=== PATIENT | male | born 1965 | race Caucasian/White ===

== ENCOUNTER 2019-12-25 12:30 | Outpatient (CLI) | payer BC, SELFPAY ==
[2019-12-28 07:35] LABS: Patient Race White; SARS-CoV-2 Specimen Source Nasal
[2019-12-28 10:14] LABS: SARS-CoV-2 RNA Detected (Undetected)
== END 2019-12-25 12:50 ==
PROVIDERS: PCP Family Medicine; Visit Provider Family Medicine
DX: Z20.828 Contact with and (suspected) exposure to other viral communicable diseases (principal)
CPT/HCPCS: U0003

== ENCOUNTER → 2023-05-25 02:17 | Outpatient (CLI) | payer BC, SELFPAY ==
--- NOTE | 2023-05-25 | DI.MRI_ITS ---
Exam(s) MR UPPER EXTREMITY RT WO EXAM: MR UPPER EXTREMITY RT WO CLINICAL HISTORY: INJURY RT BRACHIAL PLEXUS S14.3XXXA S/P FALL OUT OF TREESTAND. TECHNIQUE: Multiplanar multisequence MRI was performed. CONTRAST MATERIAL: Noncontrast COMPARISON: MRI of the shoulder from [facility] April 03 FINDINGS: Exam is significantly limited by motion. There is significant pulsation artifact from vessels. Bones: There is no fracture or contusion. Cervical Spine: Mild degenerative disc changes at C5-6 and C6-7. The cord signal is normal. No cent ral canal stenosis. No gross neural foraminal narrowing. Brachial plexus: No evidence of mass or fluid collection. Evaluation of this area significantly limi nicolasa due to motion artifact. IMPRESSION: Limited exam due to motion artifact. No gross abnormality is identified in the brachial plexus. DATA REPOSITORY:
== END ==
PROVIDERS: PCP Family Medicine; Visit Provider Physician Assistant Surgical
DX: S14.3XXA Injury of brachial plexus, initial encounter (principal); W14.XXXA Fall from tree, initial encounter; M50.822 Other cervical disc disorders at C5-C6 level; M50.823 Other cervical disc disorders at C6-C7 level
CPT/HCPCS: 73218

== ENCOUNTER 2024-06-19 14:50 | Outpatient (CLI) | payer BC, SELFPAY ==
--- NOTE | 2024-06-19 15:12 | DI.RAD_ITS ---
Exam(s) XR KNEE RT 1V EXAM: XR KNEE RT 1V CLINICAL HISTORY: right knee pain. TECHNIQUE: 2D digital imaging was performed. COMPARISON: CR XR STANDING ALIGNMENT from 06/19/2024 FINDINGS: Single lateral view of the right knee. There is significant narrowing the medial compartment. Lesser narrowing of the lateral patellofemora l compartments evident. Small amount of increased joint fluid. No osseous lesions. IMPRESSION: Degenerative narrowing of the medial compartment. DATA REPOSITORY: RADIATION DOSE DELIVERED:
--- NOTE | 2024-06-19 15:12 | DI.RAD_ITS ---
Exam(s) XR KNEE LT 1V EXAM: XR KNEE LT 1V CLINICAL HISTORY: left knee pain. TECHNIQUE: 2D digital imaging was performed. COMPARISON: CR XR KNEE RT 1V from 06/19/2024 CR XR STANDING ALIGNMENT from 06/19/2024 FINDINGS: Single lateral view of the left knee There is advanced narrowing of lateral compartment noted. Lesser degenerative changes noted in the m edial patellofemoral compartments. IMPRESSION: Advanced narrowing of the lateral compartment of the left knee. DATA REPOSITORY: RADIATION DOSE DELIVERED:
--- NOTE | 2024-06-19 15:15 | DI.RAD_ITS ---
Exam(s) XR STANDING ALIGNMENT EXAM: XR STANDING ALIGNMENT CLINICAL HISTORY: bilateral knee DJD. TECHNIQUE: 2D digital imaging was performed. FINDINGS: 3 views There are significant asymmetric degenerative changes in both knees. In the right knee there is [id number] narrowing of the medial compartment. More moderate degenerat nomi changes in the lateral compartment. Mild Verus deformity. In the left knee there is moderate-advanced narrowing the lateral compartment again noted relatively preserved height of the medial compartment, similar to previous images of 03/23/2024. Right hip appears unremarkable. Hardware across healing-healed intertrochanteric fracture the left h ip is noted. There is no obvious joint space narrowing in either hip on these images. Ankles appear unremarkable. Bone density normal. No osseous lesions IMPRESSION: Asymmetric degenerative changes in the medial compartment of the right knee and lateral compartment o f the left knee. Other findings as above. DATA REPOSITORY: RADIATION DOSE DELIVERED:
== END 2024-06-19 14:51 | disposition home or self-care (01) ==
LOC: DIORS 14:50
PROVIDERS: PCP Family Medicine; Referring Provider Family Medicine; Visit Provider Physician Assistant
DX: M17.0 Bilateral primary osteoarthritis of knee (principal)
CPT/HCPCS: 73560; 77073

== ENCOUNTER 2024-09-21 03:44 | Outpatient (CLI) | payer BC, SELFPAY ==
[2024-09-21 17:01] LABS: HCT 43.9 % (40.0-50.0); HGB 15.3 g/dL (13.5-17.5); MCH 30.6 pg (27.0-33.0); MCHC 34.9 % (32.0-36.0); MCV 88 fL (80-95); MPV 10.4 fL (8.0-11.0); Platelet Count 277 10^3/uL (130-400); RBC 5.00 10^6/uL (4.36-5.78); RDW 13.2 % (11.8-14.1); RDW-SD 42.8 fL; WBC 9.14 10^3/uL (4.4-10.8)
[2024-09-21 17:27] LABS: Anion Gap 10.1 mmol/L (3-11); BUN 19 mg/dL (7-18); CO2 28.9 mmol/L (21.0-32.0); Calcium 9.4 mg/dL (8.5-10.1); Chloride 102 mmol/L (98-107); Estimated GFR 78.30 (mL/min/1.73m2); Glucose 139 mg/dL (74-106); Potassium 4.1 mmol/L (3.5-5.1); Sodium 141 mmol/L (136-145)
== END 2024-09-21 03:45 | disposition home or self-care (01) ==
LOC: LBO 03:44 → LBN 16:04
PROVIDERS: PCP Family Medicine; Visit Provider Student in an Organized Health Care Education/Training Program
DX: M17.0 Bilateral primary osteoarthritis of knee (principal); Z01.818 Encounter for other preprocedural examination
CPT/HCPCS: 80048; 85027

== ENCOUNTER 2024-10-03 07:20 | Observation (INO) | payer BC, SELFPAY ==
[2024-10-03] VITALS (34 sets, daily range): BP systolic 109–162; BP diastolic 64–109; PULSE 52–68; RESP 9–18; TEMP 36–37.3; O2SAT 92–98; BMI 34.4
[2024-10-03] MEDS: Celecoxib 200 MG CAP 400 MG PO (08:48)
[2024-10-03] MEDS: Gabapentin 300 MG CAP PO ×2 (08:48→20:03)
[2024-10-03] MEDS: Acetaminophen 500 MG TAB 1000 MG PO ×2 (08:48→20:04)
--- NOTE | 2024-10-03 09:13 | W.PM.DSUDISC ---
Date of service: 10/03/24 Discharge Plan Disposition Condition: Good Discharge Details Reason For Visit: Bilateral knee DJD Admit Date/Time: 10/03/24 17:32 Admit Provider: Mitchel Ventura Attending Provider: Mitchel Ventura [facility]: Patient was admitted to the medical/surgical floor following the procedure. The surgery was tolerated well without any notable medical, surgical, or anesthetic complications. Mobilization began postoperatively. He was voiding spontaneously. Vitals were stable. Physical therapy worked with the patient and was cleared for discharge home. No acute medical issues. Pain was controlled on oral regimen. Home Meds and New Rx's Prescriptions: New acetaminophen 500 mg tablet 1,000 mg PO Q8H PRN Qty: 90 0RF Rx Instructions: Take two tablets up to every 8 hours as needed for pain celecoxib [Celebrex] 200 mg capsule 200 mg PO BID PRNQty: 60 0RF Rx Instructions: Take one tablet twice daily for pain and inflammation docusate sodium [Colace] 100 mg capsule 100 mg PO BID Qty: 28 0RF pantoprazole 40 mg tablet,delayed release (DR/EC) 40 mg PO DAILY Qty: 14 0RF Rx Instructions: Take one tablet once daily dexamethasone 4 mg tablet 4 mg PO DAILY Qty: 2 0RF Rx Instructions: Take one tablet once daily for two days gabapentin 300 mg capsule 300 mg PO QHS Qty: 14 0RF Rx Instructions: Take one tablet at bedtime oxycodone 5 mg tablet 5 mg PO Q4H PRNQty: 18 0RF Rx Instructions: Take one tablet up to every 4 hours as needed for severe postoperative pain Continued cholecalciferol (vitamin D3) 125 mcg (5,000 unit) capsule 125 mcg PO QWEEK Eliquis 2.5 mg tablet 2.5 mg PO BID Discharge Instructions Additional Instructions: Total Knee Discharge Instructions Activity: The most important activity is to walk and to work on gentle motion (both flexion and extension). You should try to take short walks a few times a day. It is important that when resting you work on keeping the knee straight. Avoid putting a pillow behind the knee as this will encourage flexion. Work on range of motion exercises as provided by Physical Therapy. - Start outpatient physical therapy within 2 weeks. - You should wear the FAUSTINO hose on both legs for 2 weeks. You may remove these at night. You may also use any compression sock in place of the FAUSTINO hose. - Utilize [employer] to review exercises, see videos on exercises and obtain basic information pertaining to your surgery and your recovery. Dressing: Remove the Ishan wrap by 2 days after your surgery and put on the FAUSTINO stocking given to you from the hospital. Keep the surgical dressing (underneath the ISHAN wrap) in place for at least one week. After the first week it may be removed and replaced with light gauze and tape or nothing. The wound and dressing may get wet after 3 days but avoid soaking the dressing or otherwise it will need to be changed. Many people prefer covering the dressing with cling wrap (saran wrap) to minimize it from getting soaked. If it gets wet, just pat dry. If it starts to peel off then it will need to be changed. Medications: - You should take Tylenol and anti-inflammatory Celebrex as your primary pain control medications. If the Celebrex is too expensive or not covered, please call the office for another alternative (Advil/Ibuprofen or Naproxen/Aleve) - You have been prescribed a stronger pain medication Oxycodone for breakthrough pain, take as needed as prescribed. - You have also been prescribed a stomach acid reduction agent Pantoprozole to help reduce stomach acid and reflux. - You have been prescribed Gabapentin to take at night for restlessness and nerve pain. - You will resume your normal anticoagulation Apixaban twice daily for DVT prevention unless instructed otherwise. - You have also been prescribed Decadron to take to control post-operative nausea and pain. You will start this tomorrow. - If you have constipation you should take Colace (which has been prescribed) or Miralax (which is available [id number]). It takes most people 3-4 days to have a bowel movement. Follow-up: 2 weeks 10/16/24 @ 1:30PM If you have any acute concerns or questions, please do not hesitate to contact the office at [phone]. You may contact Dr. Ventura with any questions after hours through the hospital at [phone] or on his cell phone at [phone]. Stand Alone Forms: Anesthesia Discharge Inst., Zaira.Nerve Block Instructions, Sariah Navas (DSU), Nursing Discharge Form Referrals: Max Mcknight [Primary Care Provider, Medicine] Referral Note: Please call your PCP office to make a follow up appointment for within 1 to 2 weeks. Mitchel Ventura MD [ [facility] STAFF PHYSICIAN, Orthopaedic Surgical] - 10/26/24 1:30 pm Equipment/Supplies: Walker Activity:: Elevate Remove Dressings/Wound Care:: Do Not Remove Shower/Bathe:: Cover Diet:: As Tolerated
[2024-10-03] MEDS: Lactated Ringers 1,000 ML 80 ML IV (09:16)
--- NOTE | 2024-10-03 09:41 | ANES.PREOP_ITS ---
General Info Date of Service Date Performed: 10/03/24 Height: 5 ft 11 in Weight: 112.1 kg Body Mass Index (BMI): 34.4 Surgical Procedure: Operation Date: 10/03/24 11:35 Proposed Procedure Side Surgeon p Knee Total Arthroplasty Bilateral Bilateral Mitchel Ventura MD Meds Allergies and Home Medications Allergies Allergy/AdvReac Type Severity Reaction Status Date / Time Penicillins Allergy Severe Anaphylaxis Verified 10/03/24 08:40 Home Medication ?Medication ?Instructions ?Recorded cholecalciferol (vitamin D3) 125 125 mcg PO QWEEK 03/12 08/02 mcg (5,000 unit) capsule apixaban 2.5 mg tablet (Eliquis) 2.5 mg PO BID 5 acetaminophen 500 mg tablet 1,000 mg (2 x 500 mg) PO Q 8H PRN 10/03/24 pain #90 tabs celecoxib 200 mg capsule (Celebrex) 200 mg PO BID PRN #60 caps 10/03/24 dexamethasone 4 mg tablet 4 mg PO DAILY #2 tabs docusate sodium 100 mg capsule 100 mg PO BID #28 caps 10/03/24 (Colace) gabapentin 300 mg capsule 300 mg PO QHS #14 caps 10/03 oxycodone 5 mg tablet 5 mg PO Q4H PRN #18 tabs pantoprazole 40 mg tablet,delayed 40 mg PO DAILY #14 t abs 10/03/24 release Current Visit Medications: Current Medications Generic Name Dose Route Start Last Admin Trade Name Freq PRN Reason Stop Dose Admin Acetaminophen 1,000 mg 10/03/24 06:00 10/03/24 08:48 Acetaminophen 500 Mg Tab PO 10/03/24 23:59 1,000 mg PREOP BLAYNE Administration Apixaban 2.5 mg 10/03/24 08:30 Apixaban 2.5 Mg Tab PO 11/02/24 08:29 BID BLAYNE Celecoxib 400 mg 10/03/24 06:00 10/03/24 08:48 Celecoxib 200 Mg Cap PO 10/03/24 23:59 400 mg PREOP BLAYNE Administration Celecoxib 200 mg 10/03/24 08:30 Celecoxib 200 Mg Cap PO 11/02/24 08:29 BID BLAYNE Droperidol 0.625 mg 10/03/24 08:52 Droperidol 5 Mg/2 Ml Vial IVP 11/02/24 08:51 DIRECTED PRN Ephedrine Sulfate 0 mg 10/03/24 08:52 Ephedrine 25 Mg/5 Ml Syringe IVP 11/02/24 08:51 DIRECTED PRN Fentanyl 0 mcg 10/03/24 08:52 Fentanyl 100 Mcg/2 Ml Vial IVP 11/02/24 08:51 DIRECTED PRN Gabapentin 300 mg 10/03/24 06:00 10/03/24 08:48 Gabapentin 300 Mg Cap PO 10/03/24 23:59 300 mg PREOP BLAYNE Administration Hydromorphone HCl 0.5 mg 10/03/24 07:20 Hydromorphone 2 Mg/Ml Syr IVP 11/02/24 07:19 Q2H PRN PRN Hydromorphone HCl 0 mg 10/03/24 08:52 Hydromorphone 2 Mg/Ml Syr IVP 11/02/24 08:51 DIRECTED PRN Ringer's Solution 1,000 mls @ 80 mls/hr 10/03/24 06:00 10/03/24 09:16 IV 10/03/24 23:59 80 mls/hr INFUSION BLAYNE Administration Cefazolin Sodium/Dextrose 2 gm in 50 mls @ 100 mls/hr 10/03/24 06:00 Ancef Duplex IVPB 10/03/24 23:59 PREOP BLAYNE Tranexamic Acid/Sodium Chloride 1,000 mg in 100 mls @ 600 mls/hr 10/03/24 06:00 IVPB 10/03/24 23:59 PREOP BLAYNE Tranexamic Acid/Sodium Chloride 1,000 mg in 100 mls @ 600 mls/hr 10/03/24 06:00 IVPB 10/03/24 23:59 DIRECTED BLAYNE Cefazolin Sodium/Dextrose 1 gm in 50 mls @ 100 mls/hr 10/03/24 08:00 Ancef Duplex IVPB 10/04/24 00:29 Q8H BLAYNE IV Miscellaneous Supplies 1 each 10/03/24 06:00 Iv Access IV 10/03/24 23:59 DIRECTED BLAYNE Naloxone HCl 0 mg 10/03/24 08:52 Naloxone 0.4 Mg/Ml Vial IVP 11/02/24 08:51 PRN PRN Non-Formulary Medication 125 mcg 10/03/24 07:30 Cholecalciferol (Vitamin D3) PO 11/02/24 07:29 QWEEK BLAYNE Oxycodone HCl 0 mg 10/03/24 07:20 Oxycodone 5 Mg Tab PO 11/02/24 07:19 Q3H PRN PRN Pain Sodium Chloride 0 ml 10/03/24 06:00 Normal Saline Flush 10 Ml Syr IV 10/03/24 23:59 PRN PRN Sodium Chloride 0 ml 10/03/24 06:00 Normal Saline 10 Ml Vial IJ 10/03/24 23:59 DIRECTED PRN Sterile Water 0 ml 10/03/24 06:00 Water,Injection,Sterile 10 Ml Vial IJ 10/03/24 23:59 DIRECTED PRN Tranexamic Acid 1,300 mg 10/03/24 07:20 Tranexamic Acid 650 Mg Tab PO 11/02/24 07:19 ONCE PRN postoperative PFSH Active Problems Active Problems: Problem Status Onset Code History of total bilateral knee replacement Acute 10/03/24 Z96.653 Traumatic arthropathy, 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 Medical History Medical History (Updated 10/03/24 @ 09:01 by Nilson Carpenter RN) Hx of fall 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 Left femoral shaft fracture (12/2022) s/p 2 surgeries DVT (deep venous thrombosis) Surgical History Surgical History (Updated 10/03/24 @ 09:01 by Nilson Carpenter RN) Hx of decompression of ulnar nerve Hx of repair of rotator cuff Tobacco Smoking/Tobacco Use Status: Former Tobacco Use Alcohol Alcohol Intake: current Alcohol intake frequency: holidays/special occasions only Substance Use Substance use: Never Substance use type: does not use Vital Signs and Lab Results Vital Signs Most Recent Vital Signs in EMR: Most Recent Vital Signs Temp Pulse Resp BP Pulse Ox 36.2 C L 57 L 16 162/91 H 98 10/03/24 08:42 10/03/24 08:42 10/03/24 08:42 10/03/24 08:42 10/03/24 08:42 Lab Results Complete Blood Count: WBC, (4.4-10.8) 9.14 10^3/uL 09/21/24, 15:15 RBC, (4.36-5.78) 5.00 10^6/uL 09/21/24, 15:15 Hgb, (13.5-17.5) 15.3 g/dL 09/21/24, 15:15 Hct, (40.0-50.0) 43.9 % 09/21/24, 15:15 Plt Count, (130-400) 277 10^3/uL 09/21/24, 15:15 Complete Metabolic Panel: Sodium, (136-145) 141 mmol/L 09/21/24, 15:15 Potassium, (3.5-5.1) 4.1 mmol/L 09/21/24, 15:15 Chloride, (98-107) 102 mmol/L 09/21/24, 15:15 Carbon Dioxide, (21.0-32.0) 28.9 mmol/L 09/21/24, 15 :15 BUN, (7-18) 19 mg/dL H 09/21/24, 15:15 Creatinine, (0.70-1.30) 1.1 mg/dL 09/21/24, 15:15 Est GFR (CKD-EPI 2020), (mL/min/1.73m2) 78.30 09/21/24, 15:15 Calcium, (8.5-10.1) 9.4 mg/dL 09/21/24, 15:15 Glucose, (74-106) 139 mg/dL H 09/21/24, 15:15 Anesthesia Assessment and Plan Anesthesia History Personal History: No History of Anesthesia Complications Family History: No Family History of Anesthesia Complications Exercise Tolerance Exercise Tolerance: Metabolic Equivalents>4 Pertinent Negatives Pertinent Negatives: No Symptoms of GERD Cardiac & Pulmonary Exam Cardiac Exam: Normal S1/S2 Heart Sounds Pulmonary Exam: Clear Bilateral Breath Sounds Implantable Cardiac Device Does patient have a Pacemaker or an ICD?: No Airway Exam Known Difficult Airway: No Mallampati Class: 2 Mouth Opening: Normal (> 3cm) Thyromental Distance: Greater than 3 cm Neck Range of Motion: Full ROM Neck Circumference: Normal Teeth Condition: Generalized Poor Dentition ASA Classification ASA Score: ASA 3 Emergency Case?: No NPO Status NPO Status: NPO Clears >2 hours, Solids >8 hours Anesthesia Plan Resuscitation Status: Full Code Anesthesia Technique: General Anesthesia Airway Planned: Endotracheal Tube Monitors Used: Standard Monitors and SedLine Preoperative Comments:: Pt. has chronic back pain with prior lumbar surgery. Consented for GETA & bilat. nerve blocks. Hermila Garcia, COMPUTER NETWORK SPECIALIST
--- NOTE | 2024-10-03 10:23 | W.ANESPRE ---
General Info Date of Service Date Performed: 10/03/24 Height: 5 ft 11 in Weight: 112.1 kg Body Mass Index (BMI): 34.4 Surgical Procedure: Operation Date: 10/03/24 11:35 Proposed Procedure Side Surgeon p Knee Total Arthroplasty Bilateral Bilateral Mitchel Ventura MD Meds Allergies and Home Medications Allergies Allergy/AdvReac Type Severity Reaction Status Date / Time Penicillins Allergy Severe Anaphylaxis Verified 10/03/24 08:40 Home Medication ?Medication ?Instructions ?Recorded cholecalciferol (vitamin D3) 125 125 mcg PO QWEEK 04/05/24 mcg (5,000 unit) capsule apixaban 2.5 mg tablet (Eliquis) 2.5 mg PO BID 04/06/24 acetaminophen 500 mg tablet 1,000 mg (2 x 500 mg) PO Q8H PRN 10/03/24 pain #90 tabs celecoxib 200 mg capsule (Celebrex) 200 mg PO BID PRN #60 caps 10/03/24 dexamethasone 4 mg tablet 4 mg PO DAILY #2 tabs 10/03/24 docusate sodium 100 mg capsule 100 mg PO BID #28 caps 10/03/24 (Colace) gabapentin 300 mg capsule 300 mg PO QHS #14 caps 10/03/24 oxycodone 5 mg tablet 5 mg PO Q4H PRN #18 tabs 10/03/24 pantoprazole 40 mg tablet,delayed 40 mg PO DAILY #14 tabs 10/03/24 release Current Visit Medications: Current Medications Generic Name Dose Route Start Last Admin Trade Name Freq PRN Reason Stop Dose Admin Acetaminophen 1,000 mg 10/03/24 06:00 10/03/24 08:48 Acetaminophen 500 Mg Tab PO 10/03/24 23:59 1,000 mg PREOP BLAYNE Administration Apixaban 2.5 mg 10/03/24 08:30 Apixaban 2.5 Mg Tab PO 11/02/24 08:29 BID BLAYNE Celecoxib 400 mg 10/03/24 06:00 10/03/24 08:48 Celecoxib 200 Mg Cap PO 10/03/24 23:59 400 mg PREOP BLAYNE Administration Celecoxib 200 mg 10/03/24 08:30 Celecoxib 200 Mg Cap PO 11/02/24 08:29 BID BLAYNE Droperidol 0.625 mg 10/03/24 08:52 Droperidol 5 Mg/2 Ml Vial IVP 11/02/24 08:51 DIRECTED PRN Ephedrine Sulfate 0 mg 10/03/24 08:52 Ephedrine 25 Mg/5 Ml Syringe IVP 11/02/24 08:51 DIRECTED PRN Fentanyl 0 mcg 10/03/24 08:52 Fentanyl 100 Mcg/2 Ml Vial IVP 11/02/24 08:51 DIRECTED PRN Gabapentin 300 mg 10/03/24 06:00 10/03/24 08:48 Gabapentin 300 Mg Cap PO 10/03/24 23:59 300 mg PREOP BLAYNE Administration Hydromorphone HCl 0.5 mg 10/03/24 07:20 Hydromorphone 2 Mg/Ml Syr IVP 11/02/24 07:19 Q2H PRN PRN Hydromorphone HCl 0 mg 10/03/24 08:52 Hydromorphone 2 Mg/Ml Syr IVP 11/02/24 08:51 DIRECTED PRN Ringer's Solution 1,000 mls @ 80 mls/hr 10/03/24 06:00 10/03/24 09:16 IV 10/03/24 23:59 80 mls/hr INFUSION BLAYNE Administration Cefazolin Sodium/Dextrose 2 gm in 50 mls @ 100 mls/hr 10/03/24 06:00 Ancef Duplex IVPB 10/03/24 23:59 PREOP BLAYNE Tranexamic Acid/Sodium Chloride 1,000 mg in 100 mls @ 600 mls/hr 10/03/24 06:00 IVPB 10/03/24 23:59 PREOP BLAYNE Tranexamic Acid/Sodium Chloride 1,000 mg in 100 mls @ 600 mls/hr 10/03/24 06:00 IVPB 10/03/24 23:59 DIRECTED BLAYNE Cefazolin Sodium/Dextrose 1 gm in 50 mls @ 100 mls/hr 10/03/24 08:00 Ancef Duplex IVPB 10/04/24 00:29 Q8H BLAYNE IV Miscellaneous Supplies 1 each 10/03/24 06:00 Iv Access IV 10/03/24 23:59 DIRECTED BLAYNE Naloxone HCl 0 mg 10/03/24 08:52 Naloxone 0.4 Mg/Ml Vial IVP 11/02/24 08:51 PRN PRN Non-Formulary Medication 125 mcg 10/03/24 07:30 Cholecalciferol (Vitamin D3) PO 11/02/24 07:29 QWEEK BLAYNE Oxycodone HCl 0 mg 10/03/24 07:20 Oxycodone 5 Mg Tab PO 11/02/24 07:19 Q3H PRN PRN Pain Sodium Chloride 0 ml 10/03/24 06:00 Normal Saline Flush 10 Ml Syr IV 10/03/24 23:59 PRN PRN Sodium Chloride 0 ml 10/03/24 06:00 Normal Saline 10 Ml Vial IJ 10/03/24 23:59 DIRECTED PRN Sterile Water 0 ml 10/03/24 06:00 Water,Injection,Sterile 10 Ml Vial IJ 10/03/24 23:59 DIRECTED PRN Tranexamic Acid 1,300 mg 10/03/24 07:20 Tranexamic Acid 650 Mg Tab PO 11/02/24 07:19 ONCE PRN postoperative PFSH Active Problems Active Problems: Problem Status Onset Code History of total bilateral knee replacement Acute 10/03/24 Z96.653 Traumatic arthropathy, 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 Medical History Medical History (Updated 10/03/24 @ 09:01 by Nilson Carpenter RN) Hx of fall Fell out of tree [employer] [facility] [employer] 2022 Left femoral shaft fracture (12/2022) s/p 2 surgeries DVT (deep venous thrombosis) Surgical History Surgical History (Updated 10/03/24 @ 09:01 by Nilson Carpenter RN) Hx of decompression of ulnar nerve Hx of repair of rotator cuff Tobacco Smoking/Tobacco Use Status: Former Tobacco Use Alcohol Alcohol Intake: current Alcohol intake frequency: holidays/special occasions only Substance Use Substance use: Never Substance use type: does not use Vital Signs and Lab Results Vital Signs Most Recent Vital Signs in EMR: Most Recent Vital Signs Temp Pulse Resp BP Pulse Ox 36.2 C L 62 16 138/78 95 10/03/24 09:46 10/03/24 09:46 10/03/24 09:46 10/03/24 09:46 10/03/24 09:46 Lab Results Complete Blood Count: WBC, (4.4-10.8) 9.14 10^3/uL 09/21/24, 15:15 RBC, (4.36-5.78) 5.00 10^6/uL 08/14/25, 15:15 Hgb, (13.5-17.5) 15.3 g/dL 09/21/24, 15:15 Hct, (40.0-50.0) 43.9 % 09/21/24, 15:15 Plt Count, (130-400) 277 10^3/uL 09/21/24, 15:15 Complete Metabolic Panel: Sodium, (136-145) 141 mmol/L 09/21/24, 15:15 Potassium, (3.5-5.1) 4.1 mmol/L 09/21/24, 15:15 Chloride, (98-107) 102 mmol/L 09/21/24, 15:15 Carbon Dioxide, (21.0-32.0) 28.9 mmol/L 09/21/24, 15:15 BUN, (7-18) 19 mg/dL H 09/21/24, 15:15 Creatinine, (0.70-1.30) 1.1 mg/dL 09/21/24, 15:15 Est GFR (CKD-EPI 2020), (mL/min/1.73m2) 78.30 09/21/24, 15:15 Calcium, (8.5-10.1) 9.4 mg/dL 09/21/24, 15:15 Glucose, (74-106) 139 mg/dL H 09/21/24, 15:15 Anesthesia Assessment and Plan Anesthesia History Personal History: No History of Anesthesia Complications Family History: No Family History of Anesthesia Complications Exercise Tolerance Exercise Tolerance: Metabolic Equivalents>4 Pertinent Negatives Pertinent Negatives: No Symptoms of GERD Cardiac & Pulmonary Exam Cardiac Exam: Normal S1/S2 Heart Sounds Pulmonary Exam: Clear Bilateral Breath Sounds Implantable Cardiac Device Does patient have a Pacemaker or an ICD?: No Airway Exam Known Difficult Airway: No Mallampati Class: 2 Mouth Opening: Normal (> 3cm) Thyromental Distance: Greater than 3 cm Neck Range of Motion: Full ROM Neck Circumference: Normal Teeth Condition: Generalized Poor Dentition ASA Classification ASA Score: ASA 3 Emergency Case?: No NPO Status NPO Status: NPO Clears >2 hours, Solids >8 hours Anesthesia Plan Resuscitation Status: Full Code Anesthesia Technique: General Anesthesia Airway Planned: Endotracheal Tube Monitors Used: Standard Monitors and SedLine Preoperative Comments:: Pt has chronic back pain with prior lumbar surgery. Consented for GETA and Bilat nerve block. Hermila Garcia CHINYERE
[2024-10-03] MEDS: ceFAZolin 2 GM/50 ML BAG IVPB (10:45)
[2024-10-03] MEDS: TRANEXAMIC ACID/SOD. CHL. 1,000 MG/100 ML BAG 600 MG IVPB ×2 (10:58→12:06)
--- NOTE | 2024-10-03 11:09 | W.ANESNERVE ---
Nerve Block Single Injection Procedure Date and Time Date Performed: 10/03/24 Procedure Start: 10:05 Location Where Procedure Performed Procedure Location: Day Surgery Unit Reason Performed: Postoperative Analgesia Requesting Provider: Mitchel Ventura Timeout Performed Timeout Performed: Yes Monitoring Used ECG, Blood Pressure, SpO2 and See EMR for corresponding vital signs Sterility Sterility: Hand Hygiene, Surgical Cap, Surgical Mask, Sterile Gloves, Eye Protection and Chlorhexidine Sedation Given During Procedure Sedation Given (Indicate Dose Given): Versed IV Dose:: 3mg IVP Patient Mental Status Patient Mental Status: Sedate with meaningful communication Nerve Block 1st Nerve Block: Laterality: Left Block Type: Adductor Canal Ultrasound Image Saved?: Yes Needle / Catheter Used: 100mm SonoPlex II Local Anesthetic Bolus (Indicate Dose Given): Lidocaine used for local infiltration of skin, Injected in 3-5ml increments after negative blood aspiration, Exparel Dose:: 10cc/1.3% (133mg) and Bupivacaine 0.25% with Epinephrine (1:200,000) Dose:: 10cc/25mg Bupiv & 50mcg Epi Additives (Indicate Dose Given): None Ultrasound: Sterile probe cover and gel used Nerve Stimulator: Not Used Paresthesia: None Procedure Tolerated: No Complications and Patient tolerated well Procedure Outcome: Successful Performed By: Brayden Garcia 2nd Nerve Block: Laterality: Right Block Type: Adductor Canal Ultrasound Image Saved?: Yes Needle / Catheter Used: 100mm SonoPlex II Local Anesthetic Bolus (Indicate Dose Given): Lidocaine used for local infiltration of skin, Injected in 3-5ml increments after negative blood aspiration, Exparel Dose:: 10cc/1.3% (133mg) and Bupivacaine 0.25% with Epinephrine (1:200,000) Dose:: 10cc/25mg Bupiv. & 50mcg Epi Additives (Indicate Dose Given): None Ultrasound: Sterile probe cover and gel used Nerve Stimulator: Not Used Paresthesia: None Procedure Tolerated: No Complications and Patient tolerated well Procedure Outcome: Successful Performed By: Brayden Garcia
--- NOTE | 2024-10-03 13:43 | W.PM.OP ---
Operative Note Operative Note PRE-OP DIAGNOSIS: Bilateral Knee Arthritis POST-OP DIAGNOSIS: same PROCEDURE: Bilateral Total Knee Arthroplasty with Intraoperative Navigation SURGEON: Mitchel Ventura SENIOR RESEARCH EXECUTIVE: Olga Wheat ANESTHESIA TYPE: General LMA/ETT Refer to Anesthesia Record ESTIMATED BLOOD LOSS: 300 PATHOLOGY: none sent COMPLICATIONS: None Patient was transported to: PACU Patient's condition: stable Implants: LEFT: 1. Depuy Attune Cementless Cruciate Retaining Femoral Component, Size 8 2. Depuy Attune Cementless Fixed Bearing Tibial Component, Size 7 3. Depuy Attune 8x6 CR/FB Poly RIGHT: 1. Depuy Attune Cementless Cruciate Retaining Femoral Component, Size 8 2. Depuy Attune Cementless Fixed Bearing Tibial Component, Size 7 3. Depuy Attune 8x6 CR/FB Poly Indications: I have seen Guille in clinic for symptoms of knee arthritis, confirmed with radiographic findings. Guille has exhausted nonoperative methods and was having significant limitations in daily function and desired better function and less pain. I discussed the technical details of a knee replacement. I explained the risks of the procedure to include, but not limited to, bleeding, infection, pain, stiffness, fracture, damage to nerves and vessels, damage to muscles and tendons, loosening, need for repeat procedure, blood clot and cardiopulmonary demise. Despite these risks, Guille elected to proceed. Findings: There was significant arthritis throughout both knees. Procedure Description: Guille was greeted in the preoperative holding area where the correct side was identified and marked. The consent was reviewed with the patient and signed. The history and physical was updated. All questions were answered. Preoperative medications were administered: Acetaminophen 1000mg, Celebrex 400mg, and Gabapentin 300mg. An adductor canal block was then administered by the anesthesia team in the D[facility]. Guille was taken back to the operating room. A general anesthestic was then administered. The patient was placed into the supine position on the operating room table. A nonsterile tourniquet was placed high onto the leg but only used for cementing. Posts were placed for positioning during the procedure. All bony prominences were well padded. Prophylactic antibiotics in the form of Cefazolin were administered. 1g of Tranxemic Acid was given intravenously within 30 minutes of incision. Both legs were then prepped with Chloraprep and draped in a standard fashion with impervious stockinette. A second prep with Chloraprep was performed prior to application of Iodine impregnated skin protection on the left side while the right was left in the stockinette. A timeout to confirm correct identity, side and site, procedure, allergies, anesthesia, and medical concerns was performed. LEFT KNEE: With the knee in some flexion, a midline incision was made overlying the knee. Full thickness skin flaps were raised once the extensor mechanism was encountered. These were raised medially and laterally. Any bleeding was controlled with electrocautery. Once the extensor mechanism was fully exposed, a medial parapatellar arthrotomy was performed in a flexed position. All bleeding from the arthrotomy and the geniculate arteries was coagulated. A medial subperiosteal peel was performed with electrocautery to the midcoronal plane. Due to the significant varus deformity the entire medial tibial plateau was exposed. The fat pad was removed while keeping the patellar tendon protected. The anterior distal femur synovium was removed for later visualization. The ACL and PCL were resected and the anterior horn of the lateral meniscus was transected. The knee was then flexed with the patella everted. Large osteophytes from the tibia were removed. Large osteophytes from the femur were removed. There is a notable dye punch type lesion about the lateral tibia, posterolaterally. A single pin from the Ortholign system was then utilized, placed into the distal femur approximately 1 cm anterior to the PCL insertion and within the trochlear groove. The Ortholign system was then attached to the distal femur and secured. It was then calibrated and set for a cut of 3.5 degrees of flexion as well as 1 degree of varus. The cut thickness guide was then placed, set to 9 mm. Then, the distal femoral cut guide was then held in position and pinned. With the soft tissues protected, the distal cut was performed. This was passed over a few times to ensure a planar cut. I then turned attention to the tibia. The Ortholign guide was then placed on the tibia and secured. Once again, this was calibrated by marking the center point the ACL, medial malleolus and lateral malleolus. This was then set for a cut of 2 degrees of varus and 5 degrees of posterior slope. The cut guide was placed, set for a cut of 7 mm medially and 9 mm about the preserved lateral tibial plateau which corresponded to about 2 to 3 mm from the center of the dye punch lesion. The medial and lateral collateral ligaments were protected and the cut was performed. With this completed, it was assessed and noted to be of appropriate dimensions. The guide was removed. A spacer block was inserted and the knee was brought into extension. The 6mm spacer block provided full extension, without hyperextension and with stability of both the medial and lateral collateral ligaments was assessed. The pins from the femur and the tibia were then removed. The Ortholign balancing guide was then placed showing appropriate balance in extension. The leg was then brought up into flexion at 90 degrees. Flexion gap was established and the thickness of the posterior cut was set, coplanar with the tibia. The distal femur was then sized. The anterior stylus was placed onto the lateral ridge of the anterior femur. This indicated a size 8 femur. The 4-in-1 cutting guide was the placed. The spacer block was inserted underneath the cutting guide and stability was confirmed in 90 degrees of flexion. An orly wing was used to confirm appropriate position of the anterior cut to avoid notching. This cutting guide was ensured to be flush on the cut surface and then pinned into place with headed pins. While protecting the soft tissues, quad tendon, and collateral ligaments, the anterior and posterior cuts were performed with a saw. The central two pins were removed and the posterior and anterior chamfers were cut next. The notch-cutting guide was placed. This was pinned to lateralize the femoral component as much as possible while keeping it flush on the cut surface. This was then pinned into position. A reciprocating saw was used to make the notch cut. A rasp smoothed the cut surfaces. The medial and lateral menisci were removed. A trial femoral component was then inserted, impacted down to the cut surfaces, and the lug holes were drilled. A provisional trial tibial component was placed and the knee was brought through range of motion. There was noted to be excellent extension and flexion. There was no significant instability. The patella was tracking without thumbs. A size 6mm polyethylene component provided the best range of motion and stability with less than 2mm gapping with medial and lateral stress and full extension without significant hyperextension. The tibial cut surface was fully exposed. The tibia was then sized as a 7. The tibia had been previously marked during trialing to correspond to the center of the tibial component to help with rotation. The trial was aligned to this judith, approximately rotated to the medial 1/3rd of the tibial tubercle. The trial was pinned into place. The tibia was prepared with a reamer and a keel punch and lug holes. The trial components were removed. The final components were opened on the back table. The periosteal and capsular tissues, especially posteriorly, around the knee were then systematically injected with a periarticular cocktail consisting of 246mg of Ropivacaine, 0.5mg of Epinephrine, 0.08mg of Clonidine, and 30mg of Ketorolac, diluted to 100cc, with 50cc per each knee. On the back table, with the implants opened, the cement was mixed. One batch of high viscosity cement was prepared with vacuum assistance. After the cement was ready a small amount was placed on the cut surface of the patella and the patellar button was clamped into position and held. While the cement was hardening, the cementless knee components were placed. Starting with the tibial component, the tibia was subluxed anteriorly and the lug holes of the component were lined up. The tibia was then impacted with an impactor and mallet until the tibial component was in contact with the tibia. The final polyethylene component was inserted. Then, the femoral component was inserted. The lug holes were aligned and the component was impacted into position. The knee was irrigated with Surgiphor Betadine solution. This was allowed to sit in the knee for 3 minutes and then it was irrigated out with saline. A complete synovectomy was performed around the patella and a lateral facetectomy was performed. The capsule was then reapproximated with a No. 1 Vicryl at multiple locations. The capsule was finally closed with a No. 2 Stratafix, barbed suture. The second dosing of 1g TXA was started. Deep tissues were then reapproximated with 0 Vicryl and 2-0 Vicryl. The skin was closed with a running 3-0 Monocryl in a subcuticular fashion. RIGHT KNEE: The left knee was covered and the right knee stockinette was open. The planned surgical site was then prepped once again with ChloraPrep. This allowed to dry and then Ioban was placed. With the knee in some flexion, a midline incision was made overlying the knee. Full thickness skin flaps were raised once the extensor mechanism was encountered. These were raised medially and laterally. Any bleeding was controlled with electrocautery. Once the extensor mechanism was fully exposed, a medial parapatellar arthrotomy was performed in a flexed position. All bleeding from the arthrotomy and the geniculate arteries was coagulated. A medial subperiosteal peel was performed with electrocautery to the midcoronal plane. Due to the significant varus deformity the entire medial tibial plateau was exposed. There was notable deformity about the posterior medial tibia with large osteophytes about the posterior and medial aspect of the medial tibia. The fat pad was removed while keeping the patellar tendon protected. The anterior distal femur synovium was removed for later visualization. The ACL and PCL were resected and the anterior horn of the lateral meniscus was transected. The knee was then flexed with the patella everted. Large osteophytes from the tibia were removed. Large osteophytes from the femur were removed. A single pin from the Ortholign system was then utilized, placed into the distal femur approximately 1 cm anterior to the PCL insertion and within the trochlear groove. The Ortholign system was then attached to the distal femur and secured. It was then calibrated and set for a cut of 3.5 degrees of flexion as well as 1 degree of varus. The cut thickness guide was then placed, set to 9 mm. Then, the distal femoral cut guide was then held in position and pinned. With the soft tissues protected, the distal cut was performed. This was passed over a few times to ensure a planar cut. I then turned attention to the tibia. The Ortholign guide was then placed on the tibia and secured. Once again, this was calibrated by marking the center point the ACL, medial malleolus and lateral malleolus. This was then set for a cut of 2 degrees of varus and 5 degrees of posterior slope. The cut guide was placed, set for a cut of 3 mm medially and 9 mm laterally. The medial and lateral collateral ligaments were protected and the cut was performed. With this completed, it was assessed and noted to be of appropriate dimensions. The guide was removed. A spacer block was inserted and the knee was brought into extension. The 6mm spacer block provided full extension, without hyperextension and with stability of both the medial and lateral collateral ligaments was assessed. The pins from the femur and the tibia were then removed. The Ortholign balancing guide was then placed showing appropriate balance in extension. The leg was then brought up into flexion at 90 degrees. Flexion gap was established and the thickness of the posterior cut was set, coplanar with the tibia. The distal femur was then sized. The anterior stylus was placed onto the lateral ridge of the anterior femur. This indicated a size 8 femur. The 4-in-1 cutting guide was the placed. The posterior medial femur cut was evaluated and appeared of good thickness. The spacer block was inserted underneath the cutting guide and stability was confirmed in 90 degrees of flexion. An orly wing was used to confirm appropriate position of the anterior cut to avoid notching. This cutting guide was ensured to be flush on the cut surface and then pinned into place with headed pins. While protecting the soft tissues, quad tendon, and collateral ligaments, the anterior and posterior cuts were performed with a saw. The central two pins were removed and the posterior and anterior chamfers were cut next. The notch-cutting guide was placed. This was pinned to lateralize the femoral component as much as possible while keeping it flush on the cut surface. This was then pinned into position. A reciprocating saw was used to make the notch cut. A rasp smoothed the cut surfaces. The medial and lateral menisci were removed. A trial femoral component was then inserted, impacted down to the cut surfaces, and the lug holes were drilled. A provisional trial tibial component was placed and the knee was brought through range of motion. There was noted to be excellent extension and flexion. There was no significant instability. The patella was tracking without thumbs. A size 6mm polyethylene component provided the best range of motion and stability with less than 2mm gapping with medial and lateral stress and full extension without significant hyperextension. The tibial cut surface was fully exposed. The tibia was then sized as a 7. The tibia had been previously marked during trialing to correspond to the center of the tibial component to help with rotation. The trial was aligned to this judith, approximately rotated to the medial 1/3rd of the tibial tubercle. The trial was pinned into place. The tibia was prepared with a reamer and a keel punch and lug holes. The trial components were removed. The final components were opened on the back table. The periosteal and capsular tissues, especially posteriorly, around the knee were then systematically injected with a periarticular cocktail consisting of 246mg of Ropivacaine, 0.5mg of Epinephrine, 0.08mg of Clonidine, and 30mg of Ketorolac, diluted to 100cc. On the back table, with the implants opened, the cement was mixed. One batch of high viscosity cement was prepared with vacuum assistance. After the cement was ready a small amount was placed on the cut surface of the patella and the patellar button was clamped into position and held. While the cement was hardening, the cementless knee components were placed. Starting with the tibial component, the tibia was subluxed anteriorly and the lug holes of the component were lined up. The tibia was then impacted with an impactor and mallet until the tibial component was in contact with the tibia. The final polyethylene component was inserted. Then, the femoral component was inserted. The lug holes were aligned and the component was impacted into position. The knee was irrigated with Surgiphor Betadine solution. This was allowed to sit in the knee for 3 minutes and then it was irrigated out with saline. A complete synovectomy was performed around the patella. A lateral facetectomy was also performed. The capsule was then reapproximated with a No. 1 Vicryl at multiple locations. The capsule was finally closed with a No. 2 Stratafix, barbed suture. Deep tissues were then reapproximated with 0 Vicryl and 2-0 Vicryl. The skin was closed with a running 3-0 Monocryl in a subcuticular fashion. Both incisions were then reinforced with skin glue. A Mepilex silver dressing was applied along with a [id number] RONALDO wrap to both knees. A CryoCuff was applied. Guille was transferred to the hospital bed without difficulty an suffering no apparent complication. He has a good prognosis. Physical therapy will start today and without restrictions, weight-bearing as tolerated. His home dose of Apixaban 2.5mg will be used for DVT prophylaxis, starting tonight. Date of Procedure: 10/03/24
[2024-10-03] MEDS: fentaNYL 100 MCG/2 ML VIAL IVP (14:37)
[2024-10-03] MEDS: Normal Saline Flush 10 ML SYR IV ×2 (14:39→20:02)
--- NOTE | 2024-10-03 15:03 | W.ANESPOSTOP ---
Postoperative Evaluation Date, Time and Location Date Performed: 10/03/24 Time Performed: 15:04 Patient Location: PACU Vital Signs Most Recent Imported Vital Signs: Most Recent Vital Signs Temp Pulse Resp BP Pulse Ox 36.8 C 57 L 12 138/84 98 10/03/24 14:47 10/03/24 14:51 10/03/24 14:51 10/03/24 14:51 10/03/24 14:51 Pain Score Most Recent Pain Score: Most Recent Pain Score Pain Level 6 10/03/24 14:47 Assessment Mental Status: Arousable with meaningful communication Airway and Respiratory Function: Patent airway with normal (patient baseline) respiratory exam Cardiovascular Function: Hemodynamically Stable Hydration Status: Adequately Hydrated Nausea & Vomiting: No Nausea or Vomiting Pain: Pain is tolerable per patient Peripheral Nerve Block: Regional nerve block not resolved at time of post operative discharge
[2024-10-03] MEDS: Tranexamic Acid 650 MG TAB 1300 MG PO (16:17)
[2024-10-03] MEDS: oxyCODONE 5 MG TAB PO (16:17)
--- NOTE | 2024-10-03 17:58 | IN_ITS ---
PT Notes Visit Reasons: Bilateral knee DJD Physical Therapy Day Surgery Initial Evaluation Date: 10/03/2024 Referring Doctor: Olga Wheat NP/Dr. Ventura PT Orders: PT CONSULT: Status post Ortho surgery Precautions: Weightbearing as tolerated bilateral lower extremities with assistive device Patient Profile/Admitting Diagnosis: Patient is a 59-year-old male presenting status post elective bilateral TKA by Dr. Ventura under general anesthesia with adductor blocks. Postop uncomplicated PMHX: Traumatic arthropathy, left hip (Chronic) Degenerative arthritis of knee, bilateral (Chronic) Medical History (Updated 06/20/24 @ 14:18 by Olga Wheat) Left femoral shaft fracture (12/2022) s/p 2 surgeriesDVT (deep venous thrombosis) Social History/Home Situation: Resides with in two-story home with 4 steps to enter with bilateral rails. Patient will be staying on first floor. Patient to utilize couch or recliner both of which have low surfaces. Equipment Owned/DME: [facility] Subjective: Pt reports he is feeling a little groggy in his head but not dizzy , nauseous or lightheaded Objective: [] General Observation: Young male presented semireclined on stretcher bilateral Cryo/Cuff to knee present Mental Status: Alert and oriented x 4, able to follow instructions, agreeable to participate and motivated to return home Pain: 4/10 bilateral knees right slightly greater than left ROM: [] Right Upper Extremity: WFL Left Upper Extremity: WFL Right Lower Extremity: Hip and ankle within normal limits knee 0-85 degrees Left Lower Extremity: Hip and ankle within normal limits, knee 0-90 degrees Strength: [] Right Upper Extremity: 5/5 Left Upper Extremity: 5/5 Right Lower Extremity: Quad 3-/5, fair Quad set , (+) lag with SLR in shortened range, hamstring 2+/5 Left Lower Extremity: Quad 3/5, strong Quad set , (-) lag with SLR in shortened range, hamstring 2+/5 Sensation: Intact Bed Mobility/Transfers: [] Supine to sit supervision sit to supine min assist for lower extremity Sit to stand from elevated surface contact-guard assist, from 18 inch height min assist Stand to sit min assist Bed to chair FWW standby assist Gait: Ambulated with FWW 50 feet x 1 short step length bilaterally increased weightbearing through bilateral upper extremities, impaired bilateral knee flexion during swing phase Balance: [] Static Sitting: good Dynamic Sitting: Fair + Static Standing: Fair+ with BUE support Dynamic Standing: Fair with UE support Special Tests: [] Mobility Limitations Standardized Measure [] [facility] [place] AM-PAC 6 clicks Basic Mobility Inpatient Short Form: [] Raw Score: 17 CMS Score: 50.57% Informed Consent/Education: Patient instructed in purpose of PT consult. 52890 Packet containing TKA exercise protocol has been given to patient. Education and training on initial set of 5 reps exercises that can be done at home have been completed with patient. [id number]: Transfer training with FWW various surfaces SBA. sit to stand CGA and cues to activate quads through full knee extension Right knee guarded by PT . stand to sit to heights > 22 inches CGA and cues for hand placement to reach back with at least 1UE. stand to sit at heights 21 inches CGA, 18 height min A as B quads unable to lower to surface./ impaired eccentric control. Assessment: Patient is a 59-year-old male presents with clinical signs and symptoms consistent with current/admitting diagnoses that have resulted to mobility li mitations, gait instability, generalized weakness, and impairment of motor control as demonstrated by the following impairment level findings: 1. Decreased strength to bilateral knee major muscle groups 2. Impaired standing balance 3. Limitation of joint range of motion in bilateral knee 4. Pain bilateral knees 5. Impaired functional activity tolerance Impairments are contributing to the following functional limitations: 1. Inability to safely ambulate without assistive device 2. Increase completion time for mobility ADL performance 3. Increased fall risk 4. Decline in bed mobility skills 5. Decline in transfer skills 6. Difficulty performing stairs without assistance Pt is being admitted overnight for observation with planned PT session in am prior to discharge to home. Patient is assessed as a moderate complexity based on the following: History: 59-year-old male with impairment level findings, functional limitations, and past medical history as indicated above Examination: Demonstrable impairment in strength, balance, and mobility level with underlying impairments and functional limitations as documented above Presentation: Evolving Decision Making: Moderate Goals: 1. Supervision bed mobility supine to and from sit 2. Standby assist transfers with FWW surfaces greater than 19 inches 3. Standby assist ambulating with FWW greater than 200 feet 4. Contact-guard assist ascending 4 steps with bilateral rails 5. Supervised home exercise program per TKA protocol Plan of Care/Treatment Plan: PT evaluation and 1-2 treatment session only for functional mobility training using recommended AD and for HEP instruction. DISCHARGE RECOMMENDATIONS: Home with home exercise program and outpatient PT as scheduled TREATMENT CODE/TIME: 14691, 14032, [id number] Thank you for the opportunity to participate in the care of this patient. Merna Hassan, PT [facility]
[2024-10-03] MEDS: ceFAZolin 1 GM/50 ML BAG IVPB (20:02)
[2024-10-03] MEDS: Apixaban 2.5 MG TAB PO (20:03)
[2024-10-03] MEDS: Celecoxib 200 MG CAP PO (20:03)
[2024-10-04] MEDS: oxyCODONE 5 MG TAB PO ×2 (01:17→11:07)
[2024-10-04] MEDS: ceFAZolin 1 GM/50 ML BAG IVPB ×2 (04:41→12:31)
[2024-10-04] MEDS: Normal Saline Flush 10 ML SYR IV (04:41)
[2024-10-04 07:51] VITALS: BP 120/75; PULSE 59; RESP 16; TEMP 36.9; O2SAT 98
[2024-10-04] MEDS: Celecoxib 200 MG CAP PO (08:41)
[2024-10-04] MEDS: Acetaminophen 500 MG TAB 1000 MG PO (08:41)
[2024-10-04] MEDS: Apixaban 2.5 MG TAB PO (08:41)
[2024-10-04] MEDS: Dexamethasone 4 MG TAB PO (08:41)
--- NOTE | 2024-10-04 09:04 | W.PM.DS.N ---
Date of service: 10/04/24 Time of Service: 11:09 DS: Diagnosis Discharge Diagnosis (1) History of total bilateral knee replacement: Status: Acute Discharge Plan Disposition Condition: Good Discharge Details Reason For Visit: Bilateral knee DJD Admit Date/Time: 10/03/24 17:32 Admit Provider: Mitchel Ventura Attending Provider: Mitchel Ventura [facility] Hospital Course: Patient was admitted to the medical/surgical floor following the procedure. The surgery was tolerated well without any notable medical, surgical, or anesthetic complications. Mobilization began postoperatively. He was voiding spontaneously. Vitals were stable. Physical therapy worked with the patient and was cleared for discharge home. No acute medical issues. Pain was controlled on oral regimen. Home Meds and New Rx's Prescriptions: New acetaminophen 500 mg tablet 1,000 mg PO Q8H PRN Qty: 90 0RF Rx Instructions: Take two tablets up to every 8 hours as needed for pain celecoxib [Celebrex] 200 mg capsule 200 mg PO BID PRNQty: 60 0RF Rx Instructions: Take one tablet twice daily for pain and inflammation docusate sodium [Colace] 100 mg capsule 100 mg PO BID Qty: 28 0RF pantoprazole 40 mg tablet,delayed release (DR/EC) 40 mg PO DAILY Qty: 14 0RF Rx Instructions: Take one tablet once daily dexamethasone 4 mg tablet 4 mg PO DAILY Qty: 2 0RF Rx Instructions: Take one tablet once daily for two days gabapentin 300 mg capsule 300 mg PO QHS Qty: 14 0RF Rx Instructions: Take one tablet at bedtime oxycodone 5 mg tablet 5 mg PO Q4H PRNQty: 18 0RF Rx Instructions: Take one tablet up to every 4 hours as needed for severe postoperative pain Continued cholecalciferol (vitamin D3) 125 mcg (5,000 unit) capsule 125 mcg PO QWEEK Eliquis 2.5 mg tablet 2.5 mg PO BID Discharge Instructions Additional Instructions: Total Knee Discharge Instructions Activity: The most important activity is to walk and to work on gentle motion (both flexion and extension). You should try to take short walks a few times a day. It is important that when resting you work on keeping the knee straight. Avoid putting a pillow behind the knee as this will encourage flexion. Work on range of motion exercises as provided by Physical Therapy. - Start outpatient physical therapy within 2 weeks. - You should wear the FAUSTINO hose on both legs for 2 weeks. You may remove these at night. You may also use any compression sock in place of the FAUSTINO hose. - Utilize [employer] to review exercises, see videos on exercises and obtain basic information pertaining to your surgery and your recovery. Dressing: Remove the Ishan wrap by 2 days after your surgery and put on the FAUSTINO stocking given to you from the hospital. Keep the surgical dressing (underneath the ISHAN wrap) in place for at least one week. After the first week it may be removed and replaced with light gauze and tape or nothing. The wound and dressing may get wet after 3 days but avoid soaking the dressing or otherwise it will need to be changed. Many people prefer covering the dressing with cling wrap (saran wrap) to minimize it from getting soaked. If it gets wet, just pat dry. If it starts to peel off then it will need to be changed. Medications: - You should take Tylenol and anti-inflammatory Celebrex as your primary pain control medications. If the Celebrex is too expensive or not covered, please call the office for another alternative (Advil/Ibuprofen or Naproxen/Aleve) - You have been prescribed a stronger pain medication Oxycodone for breakthrough pain, take as needed as prescribed. - You have also been prescribed a stomach acid reduction agent Pantoprozole to help reduce stomach acid and reflux. - You have been prescribed Gabapentin to take at night for restlessness and nerve pain. - You will resume your normal anticoagulation Apixaban twice daily for DVT prevention unless instructed otherwise. - You have also been prescribed Decadron to take to control post-operative nausea and pain. You will start this tomorrow. - If you have constipation you should take Colace (which has been prescribed) or Miralax (which is available [id number]). It takes most people 3-4 days to have a bowel movement. Follow-up: 2 weeks 10/16/24 @ 1:30PM If you have any acute concerns or questions, please do not hesitate to contact the office at [phone]. You may contact Dr. Ventura with any questions after hours through the hospital at [phone] or on his cell phone at [phone]. Stand Alone Forms: Anesthesia Discharge Inst., Anes.Nerve Block Instructions, Sariah Navas (DSU) Referrals: Mitchel Ventura MD [ [facility] STAFF PHYSICIAN, Orthopaedic Surgical] Equipment/Supplies: Walker Activity:: Elevate Remove Dressings/Wound Care:: Do Not Remove Shower/Bathe:: Cover Diet:: As Tolerated DS: Summary Time Spent with Patient providing and/or coordinating discharge services: Less than 30 minutes Status at Discharge Functional status at discharge: uses cane/walker Overall status at discharge: patient is progressing back to baseline Mental Status: mental status grossly normal Speech and Movement: speech and movement normal Mood: congruent mood Affect: normal affect Exam Narrative Exam Narrative: Sitting up in the chair. NAD. AAOx3 BLE dressings c/d/i. Somewhat resistant to move. Able to SLR without significant lag. SILT DP/SP/Tib bilaterally +DP pulse bilaterally Psych Mental Status: mental status grossly normal Speech and Movement: speech and movement normal Mood: congruent mood Affect: normal affect DS: Data Vitals/I&O Vitals and I&O: Vital Signs Temperature 36.9 C 10/04/24 07:51 Temperature Source Temporal Artery Scan 10/04/24 07:51 Pulse 59 L 10/04/24 07:51 Pulse Rhythm Regular 10/03/24 18:15 Pulse 54 L 10/03/24 15:11 Respiratory Rate 16 10/04/24 07:51 Respiratory Effort Normal, Non-Labored 10/03/24 18:15 Respiratory Depth Normal 10/03/24 18:15 Respiratory Pattern Normal 10/03/24 18:15 Blood Pressure 120/75 10/04/24 07:51 Blood Pressure Mean 90 10/04/24 07:51 Blood Pressure Position Supine 10/03/24 09:46 Pulse Oximetry 98 10/04/24 07:51 Respiratory End-tidal CO2 40 10/03/24 15:11 Oxygen Delivery Method Room Air 10/04/24 07:51 Oxygen Flow Rate 0 10/04/24 07:51 Pain Level 2 10/04/24 08:41 Comment Patient tolerated the procedure well. 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 Left femoral shaft fracture (12/2022) s/p 2 surgeries DVT (deep venous thrombosis) Surgical History Hx of decompression of ulnar nerve Hx of repair of rotator cuff Social History Smoking/Tobacco Use Status: Former Tobacco Use Quit Date: 02/09/04 Smoking risk assessment performed?: Yes Alcohol Intake: current Alcohol Intake frequency: holidays/special occasions only Drug use: Never Substance use type: does not use Housing: house Additional Social history: [facility] Time Spent with Patient Time Spent with Patient: <45 minutes Time was spent: preparing to see the patient(eg.review tests), ordering medications,tests, procedures and counseling the patient
--- NOTE | 2024-10-04 09:56 | PT.INTREAT ---
PT Notes Visit Reasons: Bilateral knee DJD Inpatient Physical Therapy Treatment Note [facility] Date: 10/04/2024 PRECAUTIONS:WBAT BLE with AD SUBJECTIVE:Pt reports he feels good. He states he had some sleep and took pain med prior to session OBJECTIVE: seated in chair performing ankle pumps, antonino wraps in place to BLE? PAIN: 04/17 B knee R>L VITALS: ?monitored by Nursing Therapeutic Activities (56093a[]): Direct one-on-one instruction in dynamic activities to improve functional performance. ? BED MOBILITY/TRANSFERS? Rolling L/R:independent Supine-sit: independent ? Sit-supine: independent ? Sit-stand: SBA with increased time to push through BLE to achieve stand ? Stand-sit: SBA with increased time for slow controlled descent to surface ? Bed-Chair: SBA with FWW ? Chair-bed: SBA with FWW Provided skilled cues and instruction on performance and technique throughout. Gait Training ([id number]): Direct one-on-one instruction and skilled instruction in: [x] employing an assistive device [] modified weight-bearing status [x] movement sequencing [] turning and movement with proper form [x] Provided verbal cues for equipment management and technique [x] Provided instruction in gait pattern [] Patient education regarding pacing and breathing techniques to maximize activity tolerance? GAIT? Assistive Device: FWW? Weight bearing: WBAT BLE Assist: SBA ? Distance:?50 feet x 2 ? Deviation: step to pattern with cues for quad activation on right at mid stance and cues for heelstrike to engage quad. ?pt required cues for FWW management and advancement ? STAIRS: 3 4 steps? and 2 6 steps x 3 trials with rails SBA with continuous cues for sequencing . Pt attempted reciprocal pattern on 4 steps with increased WB through BUE on rails. Pt encouraged and instructed to continue with step to pattern at this time? Therapeutic Exercises ([id number]): Direct one-on-one instruction in therapeutic exercises to develop strength, endurance, range of motion and flexibility. ? Exercises ? per TKA protocol: supine QS, AP, heelslides x 10 reps R/L SLR in shortened range 2 sets 5 reps with cue to initiate with QS knee extension stretch with roll under ankle x 2 mins x 2 R/L Ambulation ? Assistive Device: FWW? Weight bearing: WBAT B LE Assist: SBA ? Distance:? 300 feet ? Deviation: decreased knee flexion B during swing phase, early heeloff B R>L, increased WB through BUE to unweight R>L? reciprocal with increased step length ? Provided skilled instruction in proper exercise performance Provided skilled manual cues to facilitate proper muscle recruitment and/or form: [] ASSESSMENT:?tolerates progression to reciprocal pattern with FWW ambulation on level surfaces. Pt independent bed mobility supine to and from sit this session. Pt knee ROM 0-120 on left and 5-113 on right. Pt able to perform stairs with B rails without knee instability . Pt instructed to continue with step to pattern at this time for stability. Pt limited by shortened hamstring length BLE R>L. PLAN: Continue until discharge to home TREATMENT CODE/TIME:1st session: [id number], [id number]/ [id number] DISCHARGE RECOMMENDATION: Home with HEP and Outpatient PT as scheduled
--- NOTE | 2024-10-04 12:41 | DSE_ITS ---
Date of service: 10/04/24 Time of Service: 11:00 DS: Diagnosis Discharge Diagnosis (1) History of total bilateral knee replacement: Status: Acute Discharge Plan Disposition Patient Disposition: Home Condition: Good Discharge Details Reason For Visit: Bilateral knee DJD Admit Date/Time: 10/03/24 17:32 Admit Provider: Mitchel Ventura Attending Provider: Mitchel Ventura [facility]: Patient was admitted to the medical/surgical floor following the procedure. The surgery was tolerated well without any notable medical, surgical, or anesthetic complications. Mobilization began postoperatively. He was voiding spontaneously. Vitals were stable. Physical therapy worked with the patient and was cleared for discharge home. No acute medical issues. Pain was controlled on oral regimen. Home Meds and New Rx's Prescriptions: New acetaminophen 500 mg tablet 1,000 mg PO Q8H PRN Qty: 90 0RF Rx Instructions: Take two tablets up to every 8 hours as needed for pain celecoxib [Celebrex] 200 mg capsule 200 mg PO BID PRNQty: 60 0RF Rx Instructions: Take one tablet twice daily for pain and inflammation docusate sodium [Colace] 100 mg capsule 100 mg PO BID Qty: 28 0RF pantoprazole 40 mg tablet,delayed release (DR/EC) 40 mg PO DAILY Qty: 14 0RF Rx Instructions: Take one tablet once daily dexamethasone 4 mg tablet 4 mg PO DAILY Qty: 2 0RF Rx Instructions: Take one tablet once daily for two days gabapentin 300 mg capsule 300 mg PO QHS Qty: 14 0RF Rx Instructions: Take one tablet at bedtime oxycodone 5 mg tablet 5 mg PO Q4H PRNQty: 18 0RF Rx Instructions: Take one tablet up to every 4 hours as needed for severe postoperative pain Continued cholecalciferol (vitamin D3) 125 mcg (5,000 unit) capsule 125 mcg PO QWEEK Eliquis 2.5 mg tablet 2.5 mg PO BID Discharge Instructions Additional Instructions: Total Knee Discharge Instructions Activity: The most important activity is to walk and to work on gentle motion (both flexion and extension). You should try to take short walks a few times a day. It is important that when resting you work on keeping the knee straight. Avoid putting a pillow behind the knee as this will encourage flexion. Work on range of motion exercises as provided by Physical Therapy. - Start outpatient physical therapy within 2 weeks. - You should wear the FAUSTINO hose on both legs for 2 weeks. You may remove these at night. You may also use any compression sock in place of the FAUSTINO hose. - Utilize [employer] to review exercises, see videos on exercises and obtain basic information pertaining to your surgery and your recovery. Dressing: Remove the Ishan wrap by 2 days after your surgery and put on the FAUSTINO stocking given to you from the hospital. Keep the surgical dressing (underneath the ISHAN wrap) in place for at least one week. After the first week it may be removed and replaced with light gauze and tape or nothing. The wound and dressing may get wet after 3 days but avoid soaking the dressing or otherwise it will need to be changed. Many people prefer covering the dressing with cling wrap (saran wrap) to minimize it from getting soaked. If it gets wet, just pat dry. If it starts to peel off then it will need to be changed. Medications: - You should take Tylenol and anti-inflammatory Celebrex as your primary pain control medications. If the Celebrex is too expensive or not covered, please call the office for another alternative (Advil/Ibuprofen or Naproxen/Aleve) - You have been prescribed a stronger pain medication Oxycodone for breakthrough pain, take as needed as prescribed. - You have also been prescribed a stomach acid reduction agent Pantoprozole to help reduce stomach acid and reflux. - You have been prescribed Gabapentin to take at night for restlessness and nerve pain. - You will resume your normal anticoagulation Apixaban twice daily for DVT prevention unless instructed otherwise. - You have also been prescribed Decadron to take to control post-operative nausea and pain. You will start this tomorrow. - If you have constipation you should take Colace (which has been prescribed) or Miralax (which is available [id number]). It takes most people 3-4 days to have a bowel movement. Follow-up: 2 weeks 10/16/24 @ 1:30PM If you have any acute concerns or questions, please do not hesitate to contact the office at [phone]. You may contact Dr. Ventura with any questions after hours through the hospital at [phone] or on his cell phone at [phone]. Stand Alone Forms: Anesthesia Discharge Inst., Anes.Nerve Block Instructions, Sariah Navas (DSU), Nursing Discharge Form Referrals: Max Mcknight [Primary Care Provider, Medicine] Referral Note: Please call your PCP office to make a follow up appointment for within 1 to 2 weeks. Mitchel Ventura MD [ [facility] STAFF PHYSICIAN, Orthopaedic Surgical] - 10/26/24 1:30 pm Activity:: Activity as Tolerated Equipment/Supplies:: Walker Diet:: As Tolerated Discharge Orders Discharge Orders: Discharge Order (Routine); Ordered 10/04/24 Ordered By: Mitchel Ventura DS: Summary Time Spent with Patient providing and/or coordinating discharge services: Less than 30 minutes Status at Discharge Functional status at discharge: uses cane/walker Overall status at discharge: patient is back to baseline Mental Status: mental status grossly normal Speech and Movement: speech and movement normal Mood: congruent mood Affect: normal affect Exam Narrative Exam Narrative: Sitting up in the chair. NAD. AAOx3 BLE dressings c/d/i. Somewhat resistant to move. Able to SLR without significant lag. SILT DP/SP/Tib bilaterally +DP pulse bilaterally Psych Mental Status: mental status grossly normal Speech and Movement: speech and movement normal Mood: congruent mood Affect: normal affect DS: Data Vitals/I&O Vitals and I&O: Vital Signs Temperature 36.9 C 10/04/24 07:51 Temperature Source Temporal Artery Scan 10/04/24 07:51 Pulse 59 L 10/04/24 07:51 Pulse Rhythm Regular 10/03/24 18:15 Pulse 54 L 10/03/24 15:11 Respiratory Rate 16 10/04/24 07:51 Respiratory Effort Normal, Non-Labored 10/03/24 18:15 Respiratory Depth Normal 10/03/24 18:15 Respiratory Pattern Normal 10/03/24 18:15 Blood Pressure 120/75 10/04/24 07:51 Blood Pressure Mean 90 10/04/24 07:51 Blood Pressure Position Supine 10/03/24 09:46 Pulse Oximetry 98 10/04/24 07:51 Respiratory End-tidal CO2 40 10/03/24 15:11 Oxygen Delivery Method Room Air 10/04/24 07:51 Oxygen Flow Rate 0 10/04/24 07:51 Pain Level 5 10/04/24 11:07 Comment Patient tolerated the procedure well. 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 Left femoral shaft fracture (12/2022) s/p 2 surgeries DVT (deep venous thrombosis) Surgical History Hx of decompression of ulnar nerve Hx of repair of rotator cuff Social History Smoking/Tobacco Use Status: Former Tobacco Use Quit Date: 02/09/04 Smoking risk assessment performed?: Yes Alcohol Intake: current Alcohol Intake frequency: holidays/special occasions only Drug use: Never Substance use type: does not use Housing: house Additional Social history: [facility] Time Spent with Patient Time Spent with Patient: <45 minutes Time was spent: preparing to see the patient(eg.review tests), ordering medications,tests, procedures and counseling the patient
--- NOTE | 2024-10-04 13:56 | CHAPLAIN ---
Guille was resting in bed when I visited. He said he had both his knees replaced, had already been up walking and is expecting to be discharged later today. Both knees had been very painful and he expects after his recovery he will be much more comfortable. His has been into visit and will be returning to take him home. I explained my role and offered support.
--- NOTE | 2024-10-04 15:07 | CMPROGNOTE_ITS ---
Date of service: 10/04/24 Time of Service: 09:30 Care Management Progress Note Progress Note Text Progress Note Text: Guille was a direct admission for a bilateral knee replacements done yesterday afternoon. He did really well post surgery and was discharged home today. He was given detailed instructions on how to care for his dressings, and was given information on exercises to do at home prior to starting outpatient PT in 2 weeks. Guille was up in the chair, had eaten breakfast, and had ambulated to and from the bathroom several times. He stated that he was doing better than he anticipated, and was eager to go home. PT was to work with him prior to going home, and he was cleared by PT for discahrge. Discharge Potential Discharge Needs: PCP F/U Appt and Surgical F/U Appt Anticipated Barriers to Discharge: None Identified Patient/Family Education Needs: Review discharge instructions, discuss Ask Me Three Transportation: Private vehicle Plan: Guille was discharged home earlier this afternoon with no new services. As above, he received detailed discharge instructions and felt ready for discharge. Guille will f/u with his PCP and the orthopedic surgeon and continue per his plan of care. Guille was transported home by his . Social Determinants of Health Screening Social Determinants of health last assessed in clinic: 10/04/24 Will the Patient Participate in the Screening?: Yes Do you worry about having a steady place to live?: no Problems where you live: no known problems In the past 12 months, have you had to go without electric, gas, oil or water in your home?: no 1. Within the past 12 months, we worried whether our food would run out before we got money to buy more.: Never true 2. Within the past 12 months, the food we bought just didn't last and we didn't have money to get more.: Never true Has lack of transportation kept you from medical appointments or from doing things needed for daily living?: no Has anyone in your life made you feel unsafe or unsupported?: no How hard is it for you to pay for the very basics like food, housing, medical care, and heating? Would you say it is:: Not hard at all Do you want help finding or keeping work or a job?: I do not need or want help If for any reason you need help with day-to-day activities such as bathing, preparing meals, shopping, managing finances, etc., do you get the help you need?: I don?t need any help How often do you feel lonely or isolated from those around you?: Never Do you speak a language other than Belarusian at home?: No Does the patient want assistance with any of the above?: No
== END 2024-10-04 14:04 | disposition home or self-care (01) ==
LOC: SUR 17:46 → MS 18:06 → SUR 10-05 07:14 → MS 10-05 07:15
PROVIDERS: Admitting Provider Student in an Organized Health Care Education/Training Program; PCP Family Medicine; Visit Provider Student in an Organized Health Care Education/Training Program
PROC: 0SRC0JZ Replacement of Right Knee Joint with Synthetic Substitute, Open Approach (ICD-10-PCS; CPT 27447; principal; 2024-10-03 11:15)
DX: M17.0 Bilateral primary osteoarthritis of knee (principal); G89.18 Other acute postprocedural pain; M25.561 Pain in right knee; M25.562 Pain in left knee; Z86.718 Personal history of other venous thrombosis and embolism; Z79.899 Other long term (current) drug therapy
CPT/HCPCS: 27447; 20985; 64447; 96365; 96366; 97110; 97116; 97162; 97530; C1776; G0378; J0166; J0666; J0690; J1100; J1920; J2003; J2250; J2405; J2704; J3010; J8540

== ENCOUNTER 2024-10-16 16:08 | Outpatient (CLI) | payer BC, SELFPAY ==
--- NOTE | 2024-10-16 13:00 | DI.RAD_ITS ---
Exam(s) XR KNEE LT 1V XR STANDING ALIGNMENT XR KNEE RT 1V EXAM: XR STANDING ALIGNMENT CLINICAL HISTORY: 1ST POST OP BILAT TKAS. TECHNIQUE: 2D digital imaging was performed. Standing AP views were performed from the pelvis through the ankles. Lateral views of both knees COMPARISON: CR XR STANDING ALIGNMENT from 06/19/2024 CR XR KNEE LT 1V from 10/16/2024 CR XR KNEE RT 1V from 10/16/2024 FINDINGS: BONES: No acute fracture is present. No bony destructive lesion is seen. Leg length discrepancy: No significant overall leg length discrepancy. JOINTS: Knees: Bilateral knee prostheses have been placed. The alignment appears satisfactory bilaterally. The ankle joints are unremarkable. The hip joints are unremarkable. There is hardware in the left proximal femur. SOFT TISSUE: Bilateral lower extremity edema. IMPRESSION: Status post placement of bilateral knee prostheses. No significant leg length discrepancy. DATA REPOSITORY: RADIATION DOSE DELIVERED:
== END 2024-10-16 16:09 | disposition home or self-care (01) ==
LOC: DIORS 16:08
PROVIDERS: PCP Family Medicine; Visit Provider Student in an Organized Health Care Education/Training Program
DX: Z96.653 Presence of artificial knee joint, bilateral (principal)
CPT/HCPCS: 73560; 77073